=== PATIENT | female | born 1935 | race Two or more races ===

== ENCOUNTER 2017-04-15 18:06 | Observation (INO) | payer OTHER ==
[~2017-04-15] VITALS: Ht 157.5 cm; Wt 81.6 kg
[2017-04-15 19:13] LABS: Basophils # (auto) 0 uL; Basophils % (auto) 0.5 % (0.0-2.0); CONDITION Y; Eosinophils # (auto) 0.5 uL; Eosinophils % (auto) 6.6 % (0.0-7.0); Hematocrit 37.4 % (36.0-46.0); Hemoglobin 12.7 g/dL (12.2-16.2); Lymphocytes # (auto) 1.1 uL; Lymphocytes % (auto) 14.6 % (10.0-50.0); Mean Corpuscular Hemoglobin 30.4 pg (28.0-32.0); Mean Corpuscular Volume 89.4 fL (80.0-100.0); Mean Platelet Volume 9.5 fL (7.4-10.4); Monocytes # (auto) 0.7 uL; Monocytes % (auto) 9.8 % (0.0-12.0); Neutrophils # (auto) 5.2 uL; Neutrophils % (auto) 68.5 % (37.0-80.0); Platelet Count (auto) 207 10^3/uL (140-450); Red Cell Distribution Width 14.5 % (11.6-16.0); White Blood Cell 7.5 10^3/uL (4.4-10.8)
[2017-04-15 19:28] LABS: INR 0.94 (0.9-1.15); Partial Thromboplastin Time 25.7 sec (22.64-33.71); Prothrombin Time 10.2 sec (9.37-12.3)
[2017-04-15 19:36] LABS: Albumin 3.7 g/dL (3.4-5.0); Calcium 8.6 mg/dL (8.5-10.1); Potassium 3.3 mmol/L (3.5-5.1)
[2017-04-15 19:38] LABS: Bilirubin, Total 0.9 mg/dL (0.2-1.0); Total Protein 6.6 g/dL (6.4-8.2)
[2017-04-15 19:41] LABS: Magnesium 2.5 mg/dL (1.6-2.6)
[2017-04-15 19:51] LABS: Urine Bilirubin Negative (Negative); Urine Blood Negative /uL (Negative); Urine Color Yellow (Yellow); Urine Glucose Normal (Normal); Urine Ketone Negative (Negative); Urine Mucus FEW (None Seen); Urine Nitrite Negative (Negative); Urine RBC 1 /hpf (0 - 4); Urine Squamous Epithelial Cell MOD /hpf (<5); Urine Urobilinogen Normal (Negative)
[2017-04-15] MEDS ORDERED: cloNIDine HCL 0.1 MG TAB PO ONE (20:15)
[2017-04-15] MEDS ORDERED: ASPirin-EC 81 mg tab PO ONE (20:30)
[2017-04-15] MEDS ORDERED: cefTRIAXone 1GM/50ML D5W 50 ML IV ONE (20:30)
[2017-04-15] MEDS ORDERED: POTASSIUM CHL 20 Meq TABLET PO ONE (21:00)
[2017-04-15] MEDS ORDERED: ATOR20TA PO (21:38)
[2017-04-15] MEDS ORDERED: ATEN-60 PO (21:39)
[2017-04-15] MEDS ORDERED: MELO-85 PO (21:41)
[2017-04-15] MEDS ORDERED: LEVO125T6 PO (21:41)
[2017-04-15] MEDS ORDERED: HYDROcodone-ACET 5/325MG TAB PO ONE (23:00)
[2017-04-16 02:20] VITALS: BP 131/71
== END 2017-04-16 02:15 | disposition short-term general hospital (02) | DRG 69 ==
LOC: EDBD 18:06 → ER 18:08 → OVERFLOW 18:58 → ER 04-16 02:15
PROVIDERS: ADMIT Family Medicine; ATTEND Family Medicine
DX: G45.9 Transient cerebral ischemic attack, unspecified (principal); N39.0 Urinary tract infection, site not specified; I10 Essential (primary) hypertension; R74.8 Abnormal levels of other serum enzymes; E87.6 Hypokalemia; M54.9 Dorsalgia, unspecified; G89.29 Other chronic pain; E78.5 Hyperlipidemia, unspecified
CPT/HCPCS: 36415; 70450; 71010; 80053; 81001; 82962; 83735; 84484; 85025; 85610; 85730; 93005; 96365; 99285; G0378; J0696; J7042